=== PATIENT | male | born 1980 | race African-American/Black ===

== ENCOUNTER → 2017-03-19 | Emergency (ER) | payer MEDICAID | END | disposition left against medical advice (07) | LOC: ER 02:33 | DX: Z76.1 Encounter for health supervision and care of foundling (principal); Z53.21 Procedure and treatment not carried out due to patient leaving prior to being seen by health care provider ==

== ENCOUNTER 2017-06-17 06:03 | Emergency (ER) | payer MEDICAID ==
[~2017-06-17] VITALS: Ht 182.9 cm; Wt 81.6 kg
[2017-06-17] MEDS ORDERED: traMADol HCL 50 MG TAB PO ONE (06:30)
[2017-06-17 06:35] VITALS: BP 147/100
== END 2017-06-17 06:45 | disposition home or self-care (01) ==
LOC: EDBD 06:03 → ER 06:03
DX: R10.9 Unspecified abdominal pain (principal); M79.1 Myalgia; I10 Essential (primary) hypertension; F17.210 Nicotine dependence, cigarettes, uncomplicated

== ENCOUNTER 2019-05-22 20:11 | Emergency (ER) | payer SELFPAY ==
[~2019-05-22] VITALS: Ht 180.3 cm; Wt 81.6 kg
[2019-05-22] MEDS ORDERED: cloNIDine HCL 0.1 MG TAB ONE (20:27)
[2019-05-22] MEDS ORDERED: cloNIDine HCL 0.1 MG TAB PO ONE (20:45)
[2019-05-23 05:00] VITALS: BP 156/105
== END 2019-05-23 06:00 | disposition home or self-care (01) ==
LOC: ER 20:16
DX: M77.31 Calcaneal spur, right foot (principal); I10 Essential (primary) hypertension; F17.210 Nicotine dependence, cigarettes, uncomplicated; Z59.0 Homelessness
CPT/HCPCS: 73630